=== PATIENT | male | born 1980 | race Caucasian/White ===

== ENCOUNTER 2019-05-03 04:04 | Emergency (ER) | payer BC ==
[2019-05-03 04:10] VITALS: BP 120/82; PULSE 88; RESP 18; TEMP 97.5
--- NOTE | 2019-05-03 04:30 | ED ---
URI HPI - General Chief Complaint: Upper Respiratory Infection Stated Complaint: URI Time Seen by Provider: 05/03/19 04:07 Source: patient Mode of arrival: ambulatory Limitations: no limitations - History of Present Illness Initial Comments: Luciano is a 39-year-old gentleman with no significant past medical history who presents to the ER today for reevaluation of sore throat. Patient reports that earlier this week he developed a sore throat noticed white exudates, he was seen and evaluated in urgent care where he was advised he likely had a viral illness, he was given a dose of Decadron and prescribed antibiotics but advised he didn't likely need to use them. Patient did not start antibiotics. Today he noticed that his throat seemed to have worsening exudate and was sore which prompted him to come for reevaluation. Patient does report he has 2 children at home and one of his children has similar symptoms. - Related Data Previous Rx's Medication Instructions Recorded predniSONE [Deltasone] 40 mg PO DAILY 5 Days #10 tablet 05/03/19 Allergies Allergy/AdvReac Type Severity Reaction Status Date / Time Penicillins Allergy Swelling Verified 05/03/19 04:10 Review of Systems ROS Statement: Those systems with pertinent positive or pertinent negative responses have been documented in the HPI. ROS Other: All systems not noted in ROS Statement are negative. Past Medical History Past Medical History: No Reported History History of Any Multi-Drug Resistant Organisms: None Reported Additional Past Surgical History / Comment(s): ankle surgery Past Psychological History: No Psychological Hx Reported Smoking Status: Current every day smoker Past Alcohol Use History: None Reported, Rare Past Drug Use History: None Reported General Exam - General Exam Comments Initial Comments: Physical Exam GENERAL: Patient is well-developed and well-nourished. Patient is nontoxic and well-hydrated and is in no distress. HENT: Normocephalic, Atraumatic. Posterior oropharynx is erythematous with exudate bilaterally uvula is midline EYES: PERRL, EOMI PULMONARY: Unlabored respirations. CARDIOVASCULAR: RRR Warm and well perfused extremities ABDOMEN: Non-distended SKIN: No rashes or bruising : Deferred NEUROLOGIC: Alert and oriented Normal speech Normal gait MUSCULOSKELETAL: Moving all extremities with no apparent injury PSYCHIATRIC: No SI/HI Limitations: no limitations Course Vital Signs 05/03/19 04:05 Temperature 97.5 F L Pulse Rate 88 Respiratory 18 Rate Blood Pressure 120/82 O2 Sat by Pulse 99 Oximetry Medical Decision Making - Medical Decision Making History and physical exam are obtained from the patient. Patient with exudative pharyngitis concerning for possible strep, patient did have a strep swab earlier this week at urgent care and was told that it was negative however physical exam is very concerning for strep, patient does have children at home who have similar symptoms likely also strep. At this time I advised the patient to begin antibiotics. Patient had his antibiotics at bedside and took first dose of amoxicillin as he is ALLERGIC to penicillins. In addition I will give patient a 5 day burst dose of steroids for the discomfort in his throat. Supportive care measures were discussed return parameters discussed all questions pertaining care were answered patient was discharged home in stable condition. Disposition Clinical Impression: Pharyngitis Disposition: HOME SELF-CARE Condition: Stable Instructions (If sedation given, give patient instructions): Pharyngitis (ED) Prescriptions: predniSONE [Deltasone] 40 mg PO DAILY 5 Days #10 tablet Is patient prescribed a controlled substance at d/c from ED?: No Referrals: None,Stated [Primary Care Provider] - 1-2 days
== END 2019-05-03 04:51 | disposition home or self-care (01) ==
LOC: EC 04:04
DX: J02.9 Acute pharyngitis, unspecified (principal); F17.200 Nicotine dependence, unspecified, uncomplicated; Z88.0 Allergy status to penicillin
CPT/HCPCS: 99283